=== PATIENT | male | born 2000 | race Caucasian/White ===

== ENCOUNTER 2018-02-15 14:06 | Emergency (ER) | payer OTHER ==
[~2018-02-15] VITALS: Ht 172.7 cm; Wt 62.6 kg
== END 2018-02-15 18:03 | disposition home or self-care (01) ==
LOC: ER 14:06
DX: K52.9 Noninfective gastroenteritis and colitis, unspecified (principal); E86.0 Dehydration

== ENCOUNTER 2018-07-22 09:45 | Emergency (ER) | payer OTHER ==
[~2018-07-22] VITALS: Ht 175.3 cm; Wt 80.7 kg
[2018-07-22] MEDS ORDERED: INTESTINEX680 M1 PO (14:13)
[2018-07-22] MEDS ORDERED: ZANTAC150 MG PO (14:13)
== END 2018-07-22 14:33 | disposition home or self-care (01) ==
LOC: ER 09:45
DX: K29.00 Acute gastritis without bleeding (principal)